=== PATIENT | female | born 1995 | race Hispanic/Latino ===

== ENCOUNTER 2018-03-11 18:14 | Emergency (ER) | payer OTHER ==
[2018-03-11] MEDS ORDERED: IBUPROFEN 600 MG TABLET ONE (18:38)
== END 2018-03-11 19:11 | disposition home or self-care (01) ==
LOC: EDH 18:14
DX: T23.171A Burn of first degree of right wrist, initial encounter (principal); T31.0 Burns involving less than 10% of body surface; X19.XXXA Contact with other heat and hot substances, initial encounter; Y93.G3 Activity, cooking and baking; Y92.098 Other place in other non-institutional residence as the place of occurrence of the external cause; Y99.8 Other external cause status
CPT/HCPCS: 16000